=== PATIENT | male | born 1960 | race Caucasian/White ===

== ENCOUNTER 2020-12-21 06:12 | Outpatient (REF) | payer OTHER, SELFPAY ==
[2020-12-21 07:34] LABS: Blood Urea Nitrogen 20 mg/dL (9-16); Estimated Glomerular Filt Rate > 60
[2020-12-21 07:47] LABS: Prostate Specific Antigen 3.71 ng/mL (<0.05-4.0)
== END 2020-12-21 06:13 | disposition home or self-care (01) ==
LOC: HO.LAB 06:12
PROVIDERS: PCP Nurse Practitioner Family; Visit Provider Physician Assistant
DX: Z12.5 Encounter for screening for malignant neoplasm of prostate (principal); R97.20 Elevated prostate specific antigen [PSA]; R31.29 Other microscopic hematuria
CPT/HCPCS: 36415; 82565; 84153; 84520